=== PATIENT | male | born 1990 | race African-American/Black ===

== ENCOUNTER 2016-09-11 11:05 | Inpatient (IN) | payer BC, OTHER ==
[~2016-09-11] VITALS: Ht 177.8 cm; Wt 102.1 kg
[2016-09-11 11:46] LABS: BASOPHILS % (AUTO) 0 % (0-10); EOSINOPHILS # (AUTO) 0.1 10^3/uL (0.0-0.3); EOSINOPHILS % (AUTO) 1 % (0-10); LYMPHOCYTES # (AUTO) 1.8 X 10^3 (1.0-4.0); LYMPHOCYTES % (AUTO) 19 % (12-44); MEAN CORPUSCULAR HEMOGLOBIN 30 PG (25-34); MEAN CORPUSCULAR HGB CONC 34 G/DL (32-36); MEAN CORPUSCULAR VOLUME 87 FL (80-99); MEAN PLATELET VOLUME 10.2 FL (7.4-10.4); MONOCYTES # (AUTO) 0.9 X 10^3 (0.0-1.0); MONOCYTES % (AUTO) 10 % (0-12); NEUTROPHILS # (AUTO) 6.6 X 10^3 (1.8-7.8); NEUTROPHILS % (AUTO) 70 % (42-75); PLATELET COUNT 228 10^3/uL (130-400); RED BLOOD COUNT 5.58 10^6/uL (4.35-5.85); WHITE BLOOD COUNT 9.4 10^3/uL (4.3-11.0)
[2016-09-11] MEDS: NS IV 1000 ML 1,000 ML IV SCH ×4 (11:52→23:19)
--- NOTE | 2016-09-11 11:53 | ED GU-Male ---
General Chief Complaint: -Male Stated Complaint: DARK URINE Nursing Triage Note: PT C/O DARK URINE AFTER STRENUOUS WORKOUT YESTERDAY. STATES URINE INITIALLY CLEARED AFTER INCREASING WATER AND GATORADE INTAKE, BUT AWOKE WITH DARK URINE AGAIN TODAY. Source: patient Exam Limitations: no limitations History of Present Illness Time seen by provider: 11:53 Initial Comments 25-year-old male patient presents to the emergency department complains of dark urine beginning yesterday. Patient states he worked out yesterday for approximately 4 hours he has not worked out since 2011. States he did drink a lot of water and Gatorade yesterday evening with improvement in the color of his urine. Awoke today with dark urine and was concerned. States he does have generalized muscle soreness. Timing/Duration: yesterday, getting worse Severity/Quality: moderate Activities at Onset: physical activity (following 4 hrs of strenuous activity.) Prior Genitourinary Problems: none Modifying Factors: Improves With Other (improved with drinking water and gatorade.) Allergies and Home Medications Allergies Uncoded Allergies: PCN (Allergy, Unknown, 09/11/16) Home Medications Ibuprofen 200 Mg Tablet, 200 MG PO DAILY PRN PRN for HEADACHE, (Reported) Multivits,Ca,Min/Iron/FA/Lycop 1 Each Tablet, 1 TAB PO DAILY, (Reported) Constitutional: see HPI, No chills, No dizziness, No fever, No malaise, other ( fatigue) EENTM: no symptoms reported Respiratory: no symptoms reported Cardiovascular: no symptoms reported Gastrointestinal: No abdominal pain, No constipation, No diarrhea, No jaundice , No loss of appetite, No melena, No nausea, No vomiting Genitourinary: see HPI, denies burning, denies discharge, denies dysuria, denies frequency, denies flank pain, denies hematuria, denies pain Musculoskeletal: no symptoms reported Skin: no symptoms reported Psychiatric/Neurological: No Symptoms Reported All Other Systemes Reviewed Negative Unless Noted: Yes (Negative excepted noted.) Past Zypvzvp-Bqiioy-Xbyias Hx Patient Social History Alcohol Use: Denies Use Recreational Drug Use: No Smoking Status: Current Someday Smoker Type Used: Cigars Recent Foreign Travel: No Contact w/Someone Who Travel: No Recent Infectious Disease Expo: No Recent Hopitalizations: No Surgeries HX Surgeries: No Respiratory Hx Respiratory Disorders: No Cardiovascular Hx Cardiac Disorders: No Neurological Hx Neurological Disorders: No Genitourinary Hx Genitourinary Disorders: No Gastrointestinal Hx Gastrointestinal Disorders: No Musculoskeletal Hx Musculoskeletal Disorders: No Endocrine Hx Endocrine Disorders: No Reviewed Nursing Assessment Reviewed/Agree w Nursing PMH: Yes Family Medical History Significant Family History: No Pertinent Family Hx Physical Exam Vital Signs Vital Sign - Last 12Hours 09/11/16 11:20 Temp 98.2 Pulse 102 Resp 16 B/P (MAP) 132/95 Pulse Ox 98 Capillary Refill : Less Than 3 Seconds General Appearance: WD/WN, no apparent distress HEENT: PERRL/EOMI, pharynx normal, No scleral icterus (L), other (oral mucosa dry) Cardiovascular: regular rate, rhythm, no murmur Respiratory: lungs clear, normal breath sounds, no respiratory distress Gastrointestinal: normal bowel sounds, non tender, soft, no organomegaly, No distended Extremities: normal inspection, no pedal edema, normal capillary refill, other (generalized muscle tenderness.) Neurologic/Psychiatric: alert, normal mood/affect, oriented x 3 Skin: normal color, warm/dry, No jaundice Progress/Results/Core Measures Results/Orders Lab Results Laboratory Tests Test 09/11/16 11:40 09/11/16 11:50 Range/Units White Blood Count 9.4 4.3-11.0 10^3/uL Red Blood Count 5.58 4.35-5.85 10^6/uL Hemoglobin 16.5 13.3-17.7 G/DL Hematocrit 49 40-54 % Mean Corpuscular Volume 87 80-99 FL Mean Corpuscular Hemoglobin 30 25-34 PG Mean Corpuscular Hemoglobin Concent 34 32-36 G/DL Red Cell Distribution Width 13.0 10.0-14.5 % Platelet Count 228 130-400 10^3/uL Mean Platelet Volume 10.2 7.4-10.4 FL Neutrophils (%) (Auto) 70 42-75 % Lymphocytes (%) (Auto) 19 12-44 % Monocytes (%) (Auto) 10 0-12 % Eosinophils (%) (Auto) 1 0-10 % Basophils (%) (Auto) 0 0-10 % Neutrophils # (Auto) 6.6 1.8-7.8 X 10^3 Lymphocytes # (Auto) 1.8 1.0-4.0 X 10^3 Monocytes # (Auto) 0.9 0.0-1.0 X 10^3 Eosinophils # (Auto) 0.1 0.0-0.3 10^3/uL Basophils # (Auto) 0.0 0.0-0.1 10^3/uL Sodium Level 140 135-145 MMOL/L Potassium Level 4.0 3.6-5.0 MMOL/L Chloride Level 102 98-107 MMOL/L Carbon Dioxide Level 28 21-32 MMOL/L Anion Gap 10 5-14 MMOL/L Blood Urea Nitrogen 9 7-18 MG/DL Creatinine 1.35 H 0.60-1.30 MG/DL Estimat Glomerular Filtration Rate > 60 BUN/Creatinine Ratio 7 Glucose Level 95 70-105 MG/DL Calcium Level 9.3 8.5-10.1 MG/DL Total Bilirubin 0.9 0.1-1.0 MG/DL Aspartate Amino Transf (AST/SGOT) 1428 H 5-34 U/L Alanine Aminotransferase (ALT/SGPT) 344 H 0-55 U/L Alkaline Phosphatase 59 40-136 U/L Total Creatine Kinase 329006 H 30-200 U/L Troponin I < 0.30 <0.30 NG/ML Total Protein 7.4 6.4-8.2 G/DL Albumin 4.4 3.2-4.5 G/DL Lipase 17 8-78 U/L Urine Color MOHAMUD H Urine Clarity CLEAR Urine pH 6 5-9 Urine Specific [place] 1.015 L 1.016-1.022 Urine Protein 3+ H NEGATIVE Urine Glucose (UA) NEGATIVE NEGATIVE Urine Ketones NEGATIVE NEGATIVE Urine Nitrite NEGATIVE NEGATIVE Urine Bilirubin NEGATIVE NEGATIVE Urine Urobilinogen 1 NORMAL MG/DL Urine Leukocyte Esterase 1+ H NEGATIVE Urine RBC (Auto) 5+ H NEGATIVE Urine RBC 0-2 /HPF Urine WBC 0-2 /HPF Urine Squamous Epithelial Cells 0-2 /HPF Urine Crystals NONE /LPF Urine Bacteria TRACE /HPF Urine Casts NONE /LPF Urine Mucus SMALL H /LPF Urine Culture Indicated YES My Orders Orders - MAGDALENO HICKEY Cbc With Automated Diff (09/11/16 11:22) Comprehensive Metabolic Panel (09/11/16 11:22) Ua Culture If Indicated (09/11/16 11:22) Saline Lock/Iv-Start (09/11/16 11:22) Ns Iv 1000 Ml (Sodium Chloride 0.9%) (09/11/16 12:00) Lipase (09/11/16 12:15) Hepatitis Panel Acute (09/11/16 12:15) Creatine Kinase (09/11/16 12:17) Urine Culture (09/11/16 11:50) Ns Iv 1000 Ml (Sodium Chloride 0.9%) (09/11/16 13:57) Ekg Tracing (09/11/16 14:41) Troponin I (09/11/16 14:41) Medications Given in ED Current Medications Medications Dose Ordered Sig/Brooke Route Start Time Stop Time Status Last Admin Dose Admin Sodium Chloride 1,000 ml @ 0 mls/hr Q0M ONCE IV 09/11/16 13:57 09/11/16 13:58 DC 09/11/16 14:00 1,000 MLS/HR Vital Signs/I&O Vital Sign - Last 12Hours 09/11/16 11:20 Temp 98.2 Pulse 102 Resp 16 B/P (MAP) 132/95 Pulse Ox 98 Blood Pressure Mean: 107 ECG Initial ECG Impression Date: Sep 11, 2016 Initial ECG Impression Time: 14:55 Initial ECG Rate: 92 Initial ECG Rhythm: Normal Sinus Initial ECG Comparisson: No Previous ECG Available Comment Sinus rhythm. No STEMI or arrhythmia noted. ECG reviewed with Constantine Hassan MD. Departure Communication Communication Dr. Motley accepts patient to her internal medicine service for aggressive rehydration. Progress Notes Blood had to be diluted due to CK unreadable per soap slabber. Laboratory findings, diagnostic study findings, and plan for admission discussed with the patient. Patient voices understanding and agrees with the treatment plan. Patient has urinated 2 in the emergency department. Patient case discussed with Constantine Hassan MD. He agrees with the plan of care. Impression Impression: Primary Impression: Rhabdomyolysis Qualified Codes: M62.82 - Rhabdomyolysis Additional Impression: Volume depletion Disposition: ADMITTED INPATIENT Condition: Stable Decision to Admit Reason: Admit from ER (General) Decision to Admit/Date: Sep 11, 2016 Time/Decision to Admit Time: 14:25 Departure-Patient Inst. Referrals: NO,LOCAL PHYSICIAN (PCP/Family) Primary Care Physician MAGDALENO HICKEY Sep 11, 2016 11:53
[2016-09-11 12:05] LABS: BILIRUBIN,URINE NEGATIVE (NEGATIVE); KETONES,URINE NEGATIVE (NEGATIVE); LEUKOCYTE ESTERASE ,URINE 1+ (NEGATIVE); NITRITE,URINE NEGATIVE (NEGATIVE); PH,URINE 6 (5-9); PROTEIN,URINE 3+ (NEGATIVE); UROBILINOGEN,URINE 1 MG/DL (NORMAL)
[2016-09-11 12:07] LABS: ALANINE AMINOTRANSFERASE 344 U/L (0-55); ALBUMIN 4.4 G/DL (3.2-4.5); ANION GAP 10 MMOL/L (5-14); ASPARTATE AMINO TRANSFERASE 1428 U/L (5-34); BILIRUBIN,TOTAL 0.9 MG/DL (0.1-1.0); BLOOD UREA NITROGEN 9 MG/DL (7-18); BUN/CREATININE RATIO 7; CALCIUM 9.3 MG/DL (8.5-10.1); CARBON DIOXIDE 28 MMOL/L (21-32); CHLORIDE 102 MMOL/L (98-107); CREATININE SERUM 1.35 MG/DL (0.60-1.30); GFR ESTIMATED > 60; GLUCOSE 95 MG/DL (70-105); SODIUM 140 MMOL/L (135-145); TOTAL PROTEIN 7.4 G/DL (6.4-8.2)
[2016-09-11 12:20] LABS: SQUAMOUS EPITHELIAL CELL,UR 0-2 /HPF; WBC,URINE 0-2 /HPF
[2016-09-11 13:10] LABS: LIPASE 17 U/L (8-78)
[2016-09-11] MEDS ORDERED: NS IV 1000 ML 1,000 ML IV ONE (13:57)
[2016-09-11 14:14] LABS: CREATINE KINASE 135424 U/L (30-200)
[2016-09-11 15:32] VITALS: BP 136/80
[2016-09-11] MEDS ORDERED: ONDANSETRON 4 MG/2 ML (SDV) Z0FRAN IVP PRN (16:00)
[2016-09-11] MEDS ORDERED: HYDROcodone/APAP 5 MG/325 MG (LORTAB) TAB PO PRN (16:00)
[2016-09-11] MEDS ORDERED: MULT-1030 PO (16:23)
[2016-09-11] MEDS ORDERED: IBUP-2055 PO (16:23)
[2016-09-11] MEDS: KETOROLAC 30 MG/ML VIAL IVP PRN (18:12)
[2016-09-11 20:20] VITALS: BP 134/78
[2016-09-11] MEDS: FAMOTIDINE 20 MG (PEPCID) TABLET PO SCH (20:28)
[2016-09-12] MEDS: KETOROLAC 30 MG/ML VIAL IVP PRN (00:05)
[2016-09-12] MEDS: NS IV 1000 ML 1,000 ML IV SCH ×4 (00:05→08:11)
[2016-09-12 00:53] VITALS: BP 135/83
[2016-09-12 04:03] VITALS: BP 137/80
[2016-09-12 08:00] VITALS: BP 137/78
[2016-09-12 08:23] LABS: BASOPHILS % (AUTO) 0 % (0-10); EOSINOPHILS # (AUTO) 0.2 10^3/uL (0.0-0.3); EOSINOPHILS % (AUTO) 3 % (0-10); LYMPHOCYTES # (AUTO) 1.8 X 10^3 (1.0-4.0); LYMPHOCYTES % (AUTO) 30 % (12-44); MEAN CORPUSCULAR HEMOGLOBIN 29 PG (25-34); MEAN CORPUSCULAR HGB CONC 33 G/DL (32-36); MEAN CORPUSCULAR VOLUME 88 FL (80-99); MEAN PLATELET VOLUME 10.4 FL (7.4-10.4); MONOCYTES # (AUTO) 0.6 X 10^3 (0.0-1.0); MONOCYTES % (AUTO) 10 % (0-12); NEUTROPHILS # (AUTO) 3.4 X 10^3 (1.8-7.8); NEUTROPHILS % (AUTO) 57 % (42-75); PLATELET COUNT 193 10^3/uL (130-400); RED CELL DISTRIBUTION WIDTH 13.2 % (10.0-14.5)
[2016-09-12] MEDS: FAMOTIDINE 20 MG (PEPCID) TABLET PO SCH (08:37)
[2016-09-12 08:51] LABS: ALANINE AMINOTRANSFERASE 377 U/L (0-55); ALBUMIN 3.8 G/DL (3.2-4.5); ANION GAP 9 MMOL/L (5-14); ASPARTATE AMINO TRANSFERASE 1298 U/L (5-34); BILIRUBIN,TOTAL 0.7 MG/DL (0.1-1.0); BLOOD UREA NITROGEN 8 MG/DL (7-18); BUN/CREATININE RATIO 8; CALCIUM 8.6 MG/DL (8.5-10.1); CARBON DIOXIDE 24 MMOL/L (21-32); CHLORIDE 109 MMOL/L (98-107); CREATININE SERUM 1.02 MG/DL (0.60-1.30); GFR ESTIMATED > 60; GLUCOSE 86 MG/DL (70-105); POTASSIUM 4.5 MMOL/L (3.6-5.0); SODIUM 142 MMOL/L (135-145); TOTAL PROTEIN 6.2 G/DL (6.4-8.2)
[2016-09-12 08:52] LABS: CREATINE KINASE 108608 U/L (30-200)
--- NOTE | 2016-09-12 11:15 | Short Stay Summary-Hospitalist ---
HPI History of Present Illness: HPI/Chief Complaint CC: Muscle pain w/dehydration HPI: This is a 25 yoBM that just moved form [place]. Presented to ER w/ complaints of muscle pain, cramping, and dark urine. He worked out and played basketball for 4 hrs Friday for first time in 5 yrs. He was drinking water and Gatorade and woke up Friday with muscle pain and dark urine. Pt has Severe Rhabdomyolysis of 135,000 w/elevated liver enzymes of AST/ALT 1298/377, Creat down to 1.35, negative hep. 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 Patient Interview: Pt is feeling better today. Pt is visiting for an extended period. Pt will be here another 2 weeks, pt has been staying with his cousin. Pt works in [employer]. Pt admits to having clear urine Bloodwork is much improved, but numbers are still high. Pt would like to DC today and rest with hydration and no physical activity. Physical exam stable. Pt is ambulating Pt will come to [facility] for labs tomorrow Pts rhabdo and the effect on his liver were discussed w/pt Pt admits to not ever feeling bad, just fatigued Scribed by Jairo Hutton under the direct supervision of Dr. 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) Alcohol Use: Denies Use Recreational Drug Use: No Smoking Status: Current Someday Smoker Type Used: Cigars Physical Abuse Screen: No Sexual Abuse: No Recent Foreign Travel: No Contact w/other who traveled: No Recent Hopitalizations: No Recent Infectious Disease Expo: No Seasonal Allergies Seasonal Allergies: No Surgeries HX Surgeries: No Respiratory Hx Respiratory Disorders: No Cardiovascular Hx Cardiovascular Disorders: No Neurological Hx Neurological Disorders: No Reproductive System Sexually Transmitted Disease: No HIV/AIDS: No Genitourinary Hx Genitourinary Disorders: No Gastrointestinal Hx Gastrointestinal Disorders: No Musculoskeletal Hx Musculoskeletal Disorders: No Endocrine Hx Endocrine Disorders: No Blood Transfusions Adverse Reaction to a Blood Tr: No Reviewed Nursing Assessment Reviewed/Agree w Nursing PMH: Yes Family Medical History Significant Family History: No Pertinent Family Hx Review of Systems Constitutional: see HPI, dizziness, malaise, weakness EENTM: no symptoms reported Respiratory: no symptoms reported Cardiovascular: no symptoms reported Gastrointestinal: no symptoms reported Genitourinary: decreased output, other (dark urine) Musculoskeletal: muscle pain, muscle stiffness, muscle cramps Skin: no symptoms reported Psychiatric/Neurological: No Symptoms Reported Physical Exam Physical Exam Vital Signs Vital Sign - Last 12Hours 09/11/16 09/11/16 11:20 15:32 Temp 98.2 Pulse 102 Resp 16 B/P (MAP) 132/95 Pulse Ox 98 O2 Delivery Room Air Capillary Refill : Less Than 3 Seconds General Appearance: No Apparent Distress, WD/WN Eyes: Bilateral Eye Normal Inspection, Bilateral Eye PERRL HEENT: PERRL/EOMI, Normal ENT Inspection, Pharynx Normal Neck: Full Range of Motion, Normal Inspection, Non Tender, Supple, Carotid Bruit Respiratory: Chest Non Tender, Lungs Clear, Normal Breath Sounds, No Accessory Muscle Use, No Respiratory Distress Cardiovascular: Regular Rate, Rhythm, No Edema, No Gallop, No JVD, No Murmur, Normal Peripheral Pulses Gastrointestinal: Normal Bowel Sounds, No Organomegaly, No Pulsatile Mass, Non Tender, Soft Back: Normal Inspection, No CVA Tenderness, No Vertebral Tenderness Extremity: Normal Capillary Refill, Normal Inspection, Normal Range of Motion, Non Tender, No Calf Tenderness, No Pedal Edema Neurologic/Psychiatric: Alert, Oriented x3, No Motor/Sensory Deficits, Normal Mood/Affect Skin: Normal Color, Warm/Dry Lymphatic: No Adenopathy Results Results/Procedures Lab Laboratory Tests 09/11/16 11:40 09/12/16 08:14 Short Stay Diagnosis Discharge Diagnosis-Short Stay Admission Diagnosis Assessment: Acute and severe rhabdomyolysis with elevated liver enzymes and acute renal insufficiency Final Discharge Diagnosis Assessment: Acute and severe rhabdomyolysis with elevated liver enzymes and acute renal insufficiency with dehydration Conclusion Plan Plan: DC and will check labs at [facility] tomorrow and Friday Pt will drink Water and Gatorade Maintain good urinary output Clinical Quality Measures DVT/VTE Risk/Contraindication: Risk Factor Score Per Nursin RFS Level Per Nursing on Admit: 2=Moderate OLYA MOTLEY DO Sep 12, 2016 11:15
[2016-09-12 12:00] VITALS: BP 134/72
[2016-09-12 13:15] VITALS: BP 134/72
== END 2016-09-12 13:15 | disposition home or self-care (01) | DRG 558 ==
LOC: ER 11:07 → 4TH 14:45
PROVIDERS: ADMIT Internal Medicine; ATTEND Internal Medicine
DX: M62.82 Rhabdomyolysis (principal); E86.0 Dehydration; N28.9 Disorder of kidney and ureter, unspecified; F17.290 Nicotine dependence, other tobacco product, uncomplicated
CPT/HCPCS: 36415; 80053; 80074; 81000; 82550; 83690; 83874; 84484; 85025; 87088; 93005; 96360

== ENCOUNTER → 2016-09-13 | Outpatient (CLI) | payer BC ==
[~2016-09-13] MED LIST: IBUP-2055 PO; MULT-1030 PO
[2016-09-13 11:10] LABS: ALANINE AMINOTRANSFERASE 523 U/L (0-55); ALBUMIN 4.1 G/DL (3.2-4.5); ANION GAP 13 MMOL/L (5-14); ASPARTATE AMINO TRANSFERASE 1637 U/L (5-34); BILIRUBIN,TOTAL 0.5 MG/DL (0.1-1.0); BLOOD UREA NITROGEN 8 MG/DL (7-18); BUN/CREATININE RATIO 7; CALCIUM 9.4 MG/DL (8.5-10.1); CARBON DIOXIDE 22 MMOL/L (21-32); CHLORIDE 104 MMOL/L (98-107); CREATININE SERUM 1.12 MG/DL (0.60-1.30); GFR ESTIMATED > 60; GLUCOSE 101 MG/DL (70-105); SODIUM 139 MMOL/L (135-145); TOTAL PROTEIN 7.3 G/DL (6.4-8.2)
--- NOTE | 2016-09-13 12:05 | Progress Note-Hospitalist ---
Progress Note Progress Notes/Assess & Plan Date Seen 09/13/16 Diagonsis/Assessment & Plan I spoke to patient regarding lab results and liver enzymes are elevated due to the rhabdomyolysis I added myoglobin and CPK and to lab work to follow trend I spoke with the patient he is much improved eating and drinking well urinating every 15 minutes because he is drinking so much fluid and Gatorade and overall much improved and having no pain and no dark urine Considering that and due to the significant elevation in CPK it will take several days to trend down and will monitor closely and considering creatinine is normal will just continue the current treatment of conservative therapy and will check labs on Friday touch base with them and report results. BELEM SOTO DO Sep 13, 2016 12:05
[2016-09-13 12:41] LABS: MYOGLOBIN SERUM 3541.4 NG/ML (10.0-92.0)
== END ==
LOC: LAB 10:31
PROVIDERS: ATTEND Internal Medicine
DX: M79.1 Myalgia (principal); K76.89 Other specified diseases of liver
CPT/HCPCS: 36415; 80053; 82550; 83874

== ENCOUNTER → 2016-09-16 | Outpatient (CLI) | payer BC ==
[2016-09-16 13:23] LABS: ANION GAP 13 MMOL/L (5-14); BLOOD UREA NITROGEN 11 MG/DL (7-18); BUN/CREATININE RATIO 10; CALCIUM 9.5 MG/DL (8.5-10.1); CARBON DIOXIDE 23 MMOL/L (21-32); CHLORIDE 102 MMOL/L (98-107); CREATININE SERUM 1.09 MG/DL (0.60-1.30); GFR ESTIMATED > 60; GLUCOSE 89 MG/DL (70-105); SODIUM 138 MMOL/L (135-145)
[2016-09-16 13:26] LABS: POTASSIUM 4.6 MMOL/L (3.6-5.0)
== END ==
LOC: LAB 12:06
PROVIDERS: ATTEND Internal Medicine
DX: K76.89 Other specified diseases of liver (principal); M79.1 Myalgia
CPT/HCPCS: 36415; 80048